=== PATIENT | female | born 1985 | race Caucasian/White ===

== ENCOUNTER 2018-01-09 14:27 | Inpatient (IN) | payer OTHER ==
[2018-01-09] MEDS ORDERED: Ondansetron HCl/PF 4 MG/2 ML Vial ONE ×2 (14:39→16:00)
[2018-01-09] MEDS ORDERED: Adacel (T-DAP) 0.5 ML VIAL ONE (14:40)
[2018-01-09] MEDS ORDERED: ISOVUE-370 76%-LOCM 1 ML ONE (14:57)
[2018-01-09 14:59] LABS: Hemoglobin 13.7 g/dL (12.0-16.0); Mean Corpuscular HGB CONC 34.3 g/dL (32.0-36.0); Mean Corpuscular Hemoglobin 30.5 pg (27.0-31.0); Mean Corpuscular Volume 88.9 fL (78.0-98.0); Mean Platelet Volume 7.2 fL (7.4-10.4); Platelet Count 334 thou/uL (130-400); Red Blood Cell (RBC) Count 4.48 mill/uL (4.20-5.40); White Blood Cell (WBC) Count 22.4 thou/uL (4.8-10.8)
[2018-01-09] MEDS ORDERED: Fentanyl 100 MCG/2 ML VIAL ONE ×3 (15:06→18:21)
[2018-01-09 15:16] LABS: Band 11 % (5-11); Lymphocytes 10 % (21-51); MDiff Complete? YES; Monocytes 3 % (0-10); Neutrophil 76 % (42-75); PLT Morphology Comment Appears Adequate
[2018-01-09 15:20] LABS: ALT (SGPT) 1380 U/L (8-55); AST (SGOT) 1402 U/L (5-34); Alcohol Less than 10 mg/dL (Less than 10); Alkaline Phosphatase 96 U/L (40-150); Anion Gap 17 mmol/L (10-20); BUN (Urea Nitrogen) 21 mg/dL (7.0-18.7); Bilirubin, Total 0.7 mg/dL (0.2-1.2); Calc. Creatinine Clearance 0 mL/min (70-130); Calcium 9.9 mg/dL (7.8-10.44); Carbon Dioxide 18 mmol/L (22-29); Chloride 111 mmol/L (98-107); Estimated GFR-MDRD Greater than 90; Globulin 3.2 g/dL (2.4-3.5); Glucose 103 mg/dL (70-105); Potassium 3.8 mmol/L (3.5-5.1); Protein, Total 7.2 g/dL (6.0-8.3); Sodium 142 mmol/L (136-145)
[2018-01-09] MEDS ORDERED: Neomycin-Polymyxin 1 ML AMP ONE ×2 (15:26→15:27)
[2018-01-09] MEDS ORDERED: Ketorolac Tromethamine 30 MG/ML VIAL ONE (15:27)
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
[2018-01-09] MEDS ORDERED: PROPOFOL 200 MG/20 ML VIAL ONE (16:00)
[2018-01-09] MEDS ORDERED: Esmolol 100 MG/10 ML VIAL ONE (16:00)
[2018-01-09] MEDS ORDERED: PHENYLEPHRINE-NS 100 MCG/ML 10 ML SYRINGE ONE (16:00)
[2018-01-09] MEDS ORDERED: Succinylcholine Chloride 20 MG/ML 10 ml SYRINGE FS ONE (16:00)
[2018-01-09] MEDS ORDERED: Glycopyrrolate 0.2 MG/ML 5 ML SYRINGE ONE (16:00)
[2018-01-09] MEDS ORDERED: Lidocaine 1% PF 5 ML VIAL ONE (16:00)
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
[2018-01-09] MEDS ORDERED: Levofloxacin 500 mg/D5W 100 ml Premix Bag ONE (16:09)
[2018-01-09] MEDS ORDERED: Clindamycin/D5W 900 mg/50 ml Premix Bag ONE (16:09)
[2018-01-09] MEDS ORDERED: Midazolam HCl 5 mg/5 ml Vial ONE (16:23)
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
--- NOTE | 2018-01-09 18:02 | RAD ---
SIX FLUOROSCOPIC SPOT IMAGES OF THE RIGHT KNEE: Indication: External fixator plates right knee. Comparison: 01-09-18 at 2:49 p.m. FINDINGS: Since the comparison examination there has been an external fixator placement and screw fixation in t he distal right femur and proximal right tibial shaft. There is reduction of the anterior right knee dislocation. There is improved alignment of the right proximal tibial plateau fracture. Nondisplaced right fibular fracture is not appreciably changed. Total fluoroscopic time: 16.2 cm. Total exposure 0 .67 mGy*cm^2. IMPRESSION: Interval placement of external fixator spanning the patient's right knee. There has been interval red uction of the anterior right knee dislocation. There is improved alignment of the comminuted proximal tibial plateau fracture. There proximal fibular fracture is unchanged in position. POS: [facility]
[2018-01-09] MEDS ORDERED: Meperidine HCl/PF 25 MG/ML VIAL SLOW IVP PRN (18:08)
[2018-01-09] MEDS ORDERED: HYDROmorphone 2 MG/ML VIAL SLOW IVP PRN (18:08)
[2018-01-09] MEDS ORDERED: Promethazine HCl 25 MG/ML VIAL IM PRN (18:08)
[2018-01-09] MEDS ORDERED: Promethazine HCl 25 MG/ML VIAL SLOW IVP PRN (18:08)
[2018-01-09] MEDS ORDERED: Morphine Sulfate 2 MG/ML SYRINGE SLOW IVP PRN (18:08)
[2018-01-09] MEDS ORDERED: Ondansetron HCl/PF 4 MG/2 ML Vial IVP PRN ×2 (18:08→19:19)
[2018-01-09] MEDS ORDERED: Labetalol HCl 100 MG/20 ML VIAL ONE (18:17)
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
[2018-01-09] MEDS ORDERED: Dextrose 5% in Water 1,000 ML IV PRN (19:19)
[2018-01-09] MEDS ORDERED: Rib Fracture Protocol PO SCH (19:19)
[2018-01-09] MEDS ORDERED: HYDROcodone/Acetaminophen 10/325 mg Tablet PO PRN ×2 (19:19)
[2018-01-09] MEDS ORDERED: Morphine 4 MG/ML VIAL SLOW IVP PRN (19:19)
[2018-01-09] MEDS ORDERED: Sodium Chloride 0.9% 1,000 ML IV SCH (19:19)
[2018-01-09] MEDS ORDERED: Dextrose 50% Abboject 50 ML SYRINGE SLOW IVP PRN (19:19)
[2018-01-09] MEDS ORDERED: Ondansetron ODT 4 MG TAB PO PRN (19:19)
[2018-01-09] MEDS ORDERED: Cyclobenzaprine 10 MG TAB PO PRN (19:45)
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
[2018-01-09] MEDS: Ketorolac Tromethamine 30 MG/ML VIAL IVP SCH (20:38)
[2018-01-09] MEDS: Famotidine 20 MG TAB PO SCH (20:42)
[2018-01-09] MEDS: Gabapentin 300 MG CAP PO SCH (20:43)
[2018-01-09] MEDS: Sodium Chloride 0.9% 1,000 ML IV SCH (20:57)
[2018-01-09] MEDS: Clindamycin/D5W 900 MG in Premix Bag 1 BAG IVPB SCH (21:09)
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
[2018-01-09 23:06] VITALS: BMI 29.2
[2018-01-09] MEDS: traMADol HCl 50 MG TAB PO SCH (23:49)
[2018-01-09] MEDS: Acetaminophen 500 MG TAB PO SCH (23:50)
[2018-01-09] MEDS ORDERED: Ibuprofen 800 MG TAB PO SCH (23:59)
[2018-01-10] MEDS: Ketorolac Tromethamine 30 MG/ML VIAL IVP SCH ×4 (02:33→20:24)
[2018-01-10] MEDS: Acetaminophen 500 MG TAB PO SCH ×4 (05:54→23:44)
[2018-01-10] MEDS: traMADol HCl 50 MG TAB PO SCH ×4 (05:54→23:44)
[2018-01-10] MEDS: Clindamycin/D5W 900 MG in Premix Bag 1 BAG IVPB SCH (05:55)
[2018-01-10 06:23] LABS: #Eosinphils 0.1 thou/uL (0.0-0.7); #Monocytes 0.6 thou/uL (0.11-0.59); #Neutrophils 6.4 thou/uL (1.40-6.50); %Basophils 0.4 % (0.0-1.0); %Eosinophils 0.7 % (0.0-10.0); %Lymphocytes 21.6 % (21.0-51.0); %Neutrophils 70.3 % (42.0-75.0); Hemoglobin 9.7 g/dL (12.0-16.0); Mean Corpuscular HGB CONC 33.5 g/dL (32.0-36.0); Mean Corpuscular Volume 89.4 fL (78.0-98.0); Platelet Count 217 thou/uL (130-400); RBC Distribution Width 13.2 % (11.5-14.5); Red Blood Cell (RBC) Count 3.22 mill/uL (4.20-5.40); White Blood Cell (WBC) Count 9.1 thou/uL (4.8-10.8)
[2018-01-10 06:24] LABS: INR-International Normal Ratio 1.1; PTT 29.3 SEC (22.9-36.1); Prothrombin Time 14.3 SEC (12.0-14.7)
[2018-01-10 06:37] LABS: Anion Gap 9 mmol/L (10-20); BUN (Urea Nitrogen) 19 mg/dL (7.0-18.7); Calc. Creatinine Clearance 147 mL/min (70-130); Calcium 8.1 mg/dL (7.8-10.44); Carbon Dioxide 24 mmol/L (22-29); Chloride 109 mmol/L (98-107); Estimated GFR-MDRD Greater than 90; Glucose 93 mg/dL (70-105); Magnesium 1.9 mg/dL (1.6-2.6); Phosphorus 3.7 mg/dL (2.3-4.7); Potassium 3.9 mmol/L (3.5-5.1); Sodium 138 mmol/L (136-145)
--- NOTE | 2018-01-10 08:45 | RAD ---
AP VIEW OF THE CHEST: INDICATION: Followup examination. COMPARISON: Prior CT of the chest dated 01/09/18. IMPRESSION: Lungs are clear. Heart size and pulmonary vasculature are within normal limits when taking account o f exam technique. NO pleural effusion or pneumothorax is evident. No definite acute osseous abnorma lity is noted. POS: [facility]
[2018-01-10] MEDS: Gabapentin 300 MG CAP PO SCH ×3 (08:48→20:26)
[2018-01-10] MEDS: Famotidine 20 MG TAB PO SCH ×2 (08:48→20:26)
[2018-01-10] MEDS: Sodium Chloride 0.9% 1,000 ML IV SCH (11:09)
[2018-01-11] MEDS: Sodium Chloride 0.9% 1,000 ML IV SCH ×2 (02:16→17:50)
[2018-01-11] MEDS: Ketorolac Tromethamine 30 MG/ML VIAL IVP SCH (02:34)
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
[2018-01-11] MEDS: Acetaminophen 500 MG TAB PO SCH ×3 (05:32→17:51)
[2018-01-11] MEDS: traMADol HCl 50 MG TAB PO SCH ×3 (05:33→17:51)
[2018-01-11] MEDS: Famotidine 20 MG TAB PO SCH ×2 (08:20→21:18)
[2018-01-11] MEDS: Gabapentin 300 MG CAP PO SCH ×3 (08:20→21:18)
[2018-01-11] MEDS ORDERED: Clindamycin/D5W 900 MG in Premix Bag 1 BAG IVPB SCH (12:45)
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
[2018-01-12] MEDS: traMADol HCl 50 MG TAB PO SCH ×4 (00:11→18:21)
[2018-01-12] MEDS: Acetaminophen 500 MG TAB PO SCH ×4 (00:11→18:21)
[2018-01-12] MEDS: hydrALAZINE 20 MG/ML VIAL SLOW IVP PRN ×2 (00:17→20:50)
[2018-01-12] MEDS: Sodium Chloride 0.9% 1,000 ML IV SCH (05:29)
[2018-01-12] MEDS ORDERED: Clindamycin/D5W 900 mg/50 ml Premix Bag ONE (08:11)
[2018-01-12] MEDS ORDERED: Ketamine 50 MG/ML VIAL ONE (08:54)
[2018-01-12] MEDS ORDERED: Fentanyl 100 MCG/2 ML VIAL ONE (09:42)
[2018-01-12] MEDS: Famotidine 20 MG TAB PO SCH ×2 (09:42→20:47)
[2018-01-12] MEDS: Gabapentin 300 MG CAP PO SCH ×3 (09:42→20:47)
[2018-01-12] MEDS ORDERED: Midazolam HCl 5 mg/5 ml Vial ONE (09:51)
[2018-01-12] MEDS ORDERED: HYDROmorphone 0.5 MG/0.5 ML SYRINGE ONE ×3 (10:32→13:52)
[2018-01-12] MEDS ORDERED: Promethazine HCl 25 MG/ML VIAL IM PRN (12:42)
[2018-01-12] MEDS ORDERED: Ondansetron HCl/PF 4 MG/2 ML Vial IVP PRN (12:42)
[2018-01-12] MEDS ORDERED: Promethazine HCl 25 MG/ML VIAL SLOW IVP PRN (12:42)
[2018-01-12] MEDS ORDERED: HYDROmorphone 2 MG/ML VIAL SLOW IVP PRN (12:42)
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
[2018-01-12] MEDS ORDERED: Ketorolac Tromethamine 30 MG/ML VIAL ONE (14:27)
[2018-01-12] MEDS ORDERED: Labetalol 100 MG/20 ML MDV ONE (14:27)
[2018-01-12] MEDS ORDERED: Metoclopramide HCl 10 MG/2 ML VIAL ONE (14:27)
[2018-01-12] MEDS ORDERED: PROPOFOL 200 MG/20 ML VIAL ONE (14:27)
[2018-01-12] MEDS ORDERED: Dexamethasone 20 MG/5 ML VIAL ONE (14:27)
[2018-01-12] MEDS ORDERED: Glycopyrrolate 0.2 MG/ML 5 ML SYRINGE ONE (14:27)
[2018-01-12] MEDS ORDERED: Ondansetron HCl/PF 4 MG/2 ML Vial ONE (14:27)
--- NOTE | 2018-01-12 14:51 | RAD ---
RIGHT TIBIA AND FIBULA 2 VIEW SERIES: Date; 01/12/18 HISTORY: Intraoperative open reduction and internal fixation of right tibia. FINDINGS: Plate and screw fixation of the proximal tibia with near anatomic alignment. Extrinsic artifacts are present, limiting visualization. IMPRESSION: Intraoperative imaging for fracture fixation of the right tibia. POS: [facility]
--- NOTE | 2018-01-12 14:53 | RAD ---
RIGHT KNEE 2 VIEWS: Date; 01/12/18 HISTORY: Open reduction and internal fixation. COMPARISON: Knee radiograph from 01/09/18. FINDINGS: Lateral plate and screw fixation proximal tibia. There is fibular neck fracture. A screw is seen ente ring the lateral femoral condyle. IMPRESSION: Satisfactory postoperative appearance. POS: [facility]
[2018-01-13] MEDS: Acetaminophen 500 MG TAB PO SCH ×3 (00:51→12:41)
[2018-01-13] MEDS: traMADol HCl 50 MG TAB PO SCH ×3 (00:51→12:40)
[2018-01-13] MEDS: hydrALAZINE 20 MG/ML VIAL SLOW IVP PRN (01:53)
[2018-01-13] MEDS: Sodium Chloride 0.9% 1,000 ML IV SCH (03:15)
[2018-01-13 07:35] LABS: Hemoglobin 7.4 g/dL (12.0-16.0); Mean Corpuscular HGB CONC 32.6 g/dL (32.0-36.0); Mean Corpuscular Hemoglobin 29.5 pg (27.0-31.0); Mean Corpuscular Volume 90.5 fL (78.0-98.0); RBC Distribution Width 13.7 % (11.5-14.5); Red Blood Cell (RBC) Count 2.51 mill/uL (4.20-5.40); White Blood Cell (WBC) Count 12.4 thou/uL (4.8-10.8)
[2018-01-13 07:37] LABS: #Basophils 0.1 thou/uL (0.0-0.2); #Lymphocytes 2.3 thou/uL (1.20-3.40); #Monocytes 0.7 thou/uL (0.11-0.59); #Neutrophils 9.3 thou/uL (1.40-6.50); %Basophils 0.4 % (0.0-1.0); %Eosinophils 0.2 % (0.0-10.0); %Lymphocytes 18.7 % (21.0-51.0); %Monocytes 5.6 % (0.0-10.0); Mean Platelet Volume 6.7 fL (7.4-10.4); Platelet Count 224 thou/uL (130-400)
[2018-01-13] MEDS: Gabapentin 300 MG CAP PO SCH (08:46)
[2018-01-13] MEDS: Famotidine 20 MG TAB PO SCH (08:46)
[2018-01-13] MEDS ORDERED: Prenatal Vitamin 1 TAB PO SCH (09:00)
[2018-01-13] MEDS ORDERED: NIFEdipine XL 60 MG TAB PO SCH (09:00)
[2018-01-13 12:17] VITALS: BP 166/96; TEMP 98.3
--- NOTE | 2018-01-15 11:46 | EKG ---
Test Reason : Blood Pressure : / mmHG Vent. Rate : 099 BPM Atrial Rate : 099 BPM P-R Int : 124 ms QRS Dur : 078 ms QT Int : 354 ms P-R-T Axes : 056 048 028 degrees QTc Int : 454 ms Normal sinus rhythm Normal ECG Confirmed by LEAH KENT DO ([id number]), proposal editor ANN SOLOMON ([id number]) on 01/15/2018 11:46:27 AM Referred By: Confirmed By:LEAH KENT DO
== END 2018-01-13 13:56 | disposition home or self-care (01) | DRG 464 ==
LOC: ERS 14:27 → SURG A 16:23 → SDC 16:23 → SURG A 16:24
PROVIDERS: ADMIT Surgery; ATTEND Surgery
PROC: 0QSGXZZ Reposition Right Tibia, External Approach (ICD-10-PCS; principal; 2018-01-09)
PROC: 0JDJ0ZZ Extraction of Right Hand Subcutaneous Tissue and Fascia, Open Approach (ICD-10-PCS; 2018-01-09)
PROC: 2W6 Placement, Anatomical Regions, Traction (ICD-10-PCS; 2018-01-09)
PROC: 0SPC0JZ Removal of Synthetic Substitute from Right Knee Joint, Open Approach (ICD-10-PCS; 2018-01-12)
PROC: 0QSG04Z Reposition Right Tibia with Internal Fixation Device, Open Approach (ICD-10-PCS; 2018-01-12)
PROC: 0MSN0ZZ Reposition Right Knee Bursa and Ligament, Open Approach (ICD-10-PCS; 2018-01-12)
PROC: 0SP Lower Joints, Removal (ICD-10-PCS; 2018-01-12)
DX: S82.141A Displaced bicondylar fracture of right tibia, initial encounter for closed fracture (principal); S22.42XA Multiple fractures of ribs, left side, initial encounter for closed fracture; S36.118A Other injury of liver, initial encounter; S61.421A Laceration with foreign body of right hand, initial encounter; V89.2XXA Person injured in unspecified motor-vehicle accident, traffic, initial encounter; Y92.410 Unspecified street and highway as the place of occurrence of the external cause; I10 Essential (primary) hypertension; F17.210 Nicotine dependence, cigarettes, uncomplicated; F41.8 Other specified anxiety disorders; S06.0X0A Concussion without loss of consciousness, initial encounter; Z98.890 Other specified postprocedural states; S83.421A Sprain of lateral collateral ligament of right knee, initial encounter; S83.511A Sprain of anterior cruciate ligament of right knee, initial encounter; S83.521A Sprain of posterior cruciate ligament of right knee, initial encounter
CPT/HCPCS: 36415; 70450; 71045; 71260; 72125; 74177; 76001; 80048; 80053; 80307; 83735; 84100; 85025; 85610; 85730; 86850; 86900; 86901; 90471; 90715; 93005; 94640; 96361; 96365; 96374; 96375; 99292; C1713; G0390; G8978-GP-CL; G8979-GP-CK; G8979-GP-CL; G8980-GP-CL; G8987-GO-CK; G8988-GO-CI; J0131; J0360; J1100; J1170; J1885; J1956; J2001; J2250; J2270; J2405; J2704; J2765; J3010; J3490; J7620